=== PATIENT | male | born 1985 | race Caucasian/White ===

== ENCOUNTER 2016-12-21 15:42 | Emergency (ER) | payer OTHER ==
[~2016-12-21] VITALS: Ht 180.3 cm; Wt 68.0 kg
[2016-12-21 17:16] LABS: HEMATOCRIT 43.2 % (39.0-50.0); HEMOGLOBIN 14.7 g/dl (14.0-18.0); IMMATURE GRANULOCYTES 0.1 % (0.0-1.0); MEAN CELL VOLUME 88.3 fL CALC (80.0-100.0); MEAN CORPUSCULAR HGB 30.1 pG CALC (26.0-32.0); NEUT# 3.82 thou/uL (1.82-7.42); RED BLOOD COUNT 4.89 mill/uL (4.70-6.10); RED CELL DISTRI WIDTH 12.6 % (11.5-15.5)
[2016-12-21 17:17] LABS: URINE BILIRUBIN - DIPSTICK NEGATIVE (NEGATIVE); URINE BLOOD DIPSTICK NEGATIVE (NEGATIVE); URINE CLARITY CLEAR; URINE COLOR YELLOW; URINE GLUCOSE - DIPSTICK NEGATIVE (NEGATIVE); URINE KETONE NEGATIVE (NEGATIVE); URINE LEUK ESTERASE NEGATIVE (NEGATIVE); URINE NITRITE - DIPSTICK NEGATIVE (Negative); URINE PH 5.5 (4.5-8.0); URINE PROTEIN - DIPSTICK NEGATIVE (NEG-TRACE); URINE UROBILINOGEN - DIPSTICK 0.2 E.U./dL (0.2)
[2016-12-21 17:29] LABS: ALBUMIN 4.8 g/dL (3.2-5.0); ALKALINE PHOSPHATASE 58 u/l (38-126); AMYLASE 66 u/l (30-110); ANION GAP 16 (6-22 (CALC)); BILIRUBIN, TOTAL 0.4 mg/dL (0.0-1.4); BUN 15 mg/dL (9-20); BUN/CREATININE RATIO 17 (12-20 (CALC)); CARBON DIOXIDE 28 mmol/l (22-30); CHLORIDE 104 mmol/l (95-108); CREATININE 0.9 mg/dL (0.7-1.3); GFR > 60 ML/MIN (>=60 (CALC)); GFR FOR AFR.AMER. > 60 ML/MIN (>=60 (CALC)); GLUCOSE 90 mg/dL (75-110); LIPASE 36 u/l (23-300); SGOT/AST 23 u/l (17-59); SGPT/ALT 38 u/l (21-72); SODIUM 143 mmol/l (137-146)
[2016-12-21 19:42] VITALS: BP 125/81
== END 2016-12-21 19:44 | disposition home or self-care (01) | DRG 392 ==
LOC: ED 15:42
PROVIDERS: Emergency Medicine
DX: R10.31 Right lower quadrant pain (principal); F41.9 Anxiety disorder, unspecified; R10.13 Epigastric pain
CPT/HCPCS: Q9967

== ENCOUNTER 2018-05-17 07:57 | Emergency (ER) | payer SELFPAY ==
[~2018-05-17] VITALS: Ht 180.3 cm; Wt 72.7 kg
[2018-05-17] MEDS ORDERED: CLEOCIN300 MG PO (08:38)
[2018-05-17] MEDS ORDERED: DELTASONE20 MG PO (08:38)
[2018-05-17 09:07] VITALS: BP 139/77
== END 2018-05-17 09:07 | disposition home or self-care (01) | DRG 159 ==
LOC: ED 07:57
DX: K13.79 Other lesions of oral mucosa (principal); M54.2 Cervicalgia

== ENCOUNTER 2018-08-17 20:25 | Emergency (ER) | payer BC ==
[~2018-08-17] VITALS: Ht 180.3 cm; Wt 75.0 kg
[~2018-08-17 20:25] MED LIST: CLEOCIN300 MG PO; DELTASONE20 MG PO
[2018-08-17 21:02] LABS: HEMATOCRIT 40.8 % (39.0-50.0); HEMOGLOBIN 14.2 g/dl (14.0-18.0); IMMATURE GRANULOCYTES 0.2 % (0.0-5.0); MEAN CELL VOLUME 89.3 fL CALC (80.0-100.0); MEAN CORPUSCULAR HGB 31.1 pG CALC (26.0-32.0); MEAN CORPUSCULAR HGB CONC 34.8 g/L CALC (32.0-36.0); NEUT# 4.9 thou/uL (1.82-7.42); RED BLOOD COUNT 4.57 mill/uL (4.70-6.10); RED CELL DISTRI WIDTH 12.5 % (11.5-15.5)
[2018-08-17 21:28] LABS: ALBUMIN 4.7 g/dL (3.2-5.0); ALKALINE PHOSPHATASE 70 u/l (38-126); ANION GAP 15 (6-22 (CALC)); BILIRUBIN, TOTAL 0.4 mg/dL (0.0-1.4); BUN 18 mg/dL (9-20); BUN/CREATININE RATIO 19 (12-20 (CALC)); CARBON DIOXIDE 26 mmol/l (22-30); CHLORIDE 104 mmol/l (95-108); CREATININE 0.9 mg/dL (0.7-1.3); GFR > 60 ML/MIN (>=60 (CALC)); GFR FOR AFR.AMER. > 60 ML/MIN (>=60 (CALC)); SGOT/AST 37 u/l (17-59); SODIUM 141 mmol/l (137-146); TOTAL PROTEIN 7.6 g/dL (6.3-8.2)
[2018-08-17 22:20] LABS: URINE BILIRUBIN - DIPSTICK NEGATIVE (NEGATIVE); URINE BLOOD DIPSTICK NEGATIVE (NEGATIVE); URINE COLOR YELLOW; URINE GLUCOSE - DIPSTICK NEGATIVE (NEGATIVE); URINE KETONE NEGATIVE (NEGATIVE); URINE LEUK ESTERASE NEGATIVE (NEGATIVE); URINE NITRITE - DIPSTICK NEGATIVE (Negative); URINE PH 6.5 (4.5-8.0); URINE PROTEIN - DIPSTICK NEGATIVE (NEG-TRACE); URINE SPECIFIC GRAVITY 1.025; URINE UROBILINOGEN - DIPSTICK 0.2 E.U./dL (0.2)
[2018-08-18 00:07] VITALS: BP 145/72
== END 2018-08-18 00:23 | disposition home or self-care (01) | DRG 730 ==
LOC: ED 20:25
PROVIDERS: Emergency Medicine
DX: N43.3 Hydrocele, unspecified (principal)

== ENCOUNTER 2019-05-06 18:20 | Emergency (ER) | payer BC ==
[~2019-05-06] VITALS: Ht 180.3 cm; Wt 80.0 kg
[2019-05-06 19:47] LABS: HEMATOCRIT 39.2 % (39.0-50.0); HEMOGLOBIN 13.6 g/dl (14.0-18.0); IMMATURE GRANULOCYTES 0.3 % (0.0-5.0); MEAN CELL VOLUME 86.3 fL CALC (80.0-100.0); MEAN CORPUSCULAR HGB CONC 34.7 g/L CALC (32.0-36.0); NEUT# 4.14 thou/uL (1.82-7.42); RED BLOOD COUNT 4.54 mill/uL (4.70-6.10); RED CELL DISTRI WIDTH 12.5 % (11.5-15.5)
[2019-05-06 20:01] LABS: ALBUMIN 4.6 g/dL (3.2-5.0); ALKALINE PHOSPHATASE 76 u/l (38-126); ANION GAP 15 (6-22 (CALC)); BILIRUBIN, TOTAL 0.4 mg/dL (0.0-1.4); BUN 16 mg/dL (9-20); BUN/CREATININE RATIO 18 (12-20 (CALC)); CARBON DIOXIDE 28 mmol/l (22-30); CHLORIDE 102 mmol/l (95-108); CREATININE 0.9 mg/dL (0.7-1.3); GFR > 60 ML/MIN (>=60 (CALC)); GFR FOR AFR.AMER. > 60 ML/MIN (>=60 (CALC)); SGOT/AST 25 u/l (17-59); SODIUM 141 mmol/l (137-146); TOTAL PROTEIN 7.4 g/dL (6.3-8.2)
[2019-05-06 20:14] LABS: MYOGLOBIN 27 ng/mL (0 - 121)
[2019-05-06] MEDS ORDERED: NAPROXEN500 MG PO (21:41)
[2019-05-06 21:48] VITALS: BP 116/70
== END 2019-05-06 21:48 | disposition home or self-care (01) | DRG 313 ==
LOC: ED 18:20
PROVIDERS: Emergency Medicine
DX: R07.89 Other chest pain (principal)

== ENCOUNTER 2019-07-29 12:00 | Emergency (ER) | payer BC ==
[~2019-07-29] VITALS: Ht 180.3 cm; Wt 79.5 kg
[~2019-07-29 12:00] MED LIST changes: +NAPROXEN500 MG PO
[2019-07-29 13:46] LABS: HEMATOCRIT 41.1 % (39.0-50.0); IMMATURE GRANULOCYTES 0.2 % (0.0-5.0); MEAN CELL VOLUME 87.8 fL CALC (80.0-100.0); MEAN CORPUSCULAR HGB 29.9 pG CALC (26.0-32.0); MEAN CORPUSCULAR HGB CONC 34.1 g/L CALC (32.0-36.0); NEUT# 3.04 thou/uL (1.82-7.42); RED BLOOD COUNT 4.68 mill/uL (4.70-6.10); RED CELL DISTRI WIDTH 12.7 % (11.5-15.5)
[2019-07-29 14:03] LABS: ALBUMIN 4.9 g/dL (3.2-5.0); ALKALINE PHOSPHATASE 61 u/l (38-126); AMYLASE 60 u/l (30-110); ANION GAP 15 (6-22 (CALC)); BILIRUBIN, TOTAL 0.6 mg/dL (0.0-1.4); BUN 9 mg/dL (9-20); BUN/CREATININE RATIO 9 (12-20 (CALC)); CARBON DIOXIDE 28 mmol/l (22-30); CHLORIDE 102 mmol/l (95-108); GFR > 60 ML/MIN (>=60 (CALC)); GFR FOR AFR.AMER. > 60 ML/MIN (>=60 (CALC)); LIPASE 33 u/l (23-300); SGOT/AST 30 u/l (17-59); SODIUM 141 mmol/l (137-146); TOTAL PROTEIN 8.2 g/dL (6.3-8.2)
[2019-07-29 14:54] LABS: URINE BILIRUBIN - DIPSTICK NEGATIVE (NEGATIVE); URINE BLOOD DIPSTICK NEGATIVE (NEGATIVE); URINE COLOR YELLOW; URINE GLUCOSE - DIPSTICK NEGATIVE (NEGATIVE); URINE KETONE NEGATIVE (NEGATIVE); URINE LEUK ESTERASE NEGATIVE (NEGATIVE); URINE NITRITE - DIPSTICK NEGATIVE (Negative); URINE PH 6.5 (4.5-8.0); URINE PROTEIN - DIPSTICK NEGATIVE (NEG-TRACE); URINE SPECIFIC GRAVITY <=1.005; URINE UROBILINOGEN - DIPSTICK 0.2 E.U./dL (0.2)
[2019-07-29 15:35] LABS: BARBITURATES NEGATIVE (NEGATIVE); COCAINE NEGATIVE (NEGATIVE); METHADONE NEGATIVE (NEGATIVE); OXCYCODONE NEGATIVE (NEGATIVE); TETRAHYDROCANNABIONOL NEGATIVE (NEGATIVE); TRICYLIC ANTIDEPRESSANTS NEGATIVE (NEGATIVE)
[2019-07-29] MEDS ORDERED: CIPROFLOXACN500 MG PO (16:42)
[2019-07-29] MEDS ORDERED: PROTONIX40 M2 PO (16:42)
[2019-07-29] MEDS ORDERED: METRONIDAZOL500 MG PO (16:42)
[2019-07-29 18:13] VITALS: BP 112/72
== END 2019-07-29 18:13 | disposition home or self-care (01) | DRG 392 ==
LOC: ED 12:00
DX: K57.30 Diverticulosis of large intestine without perforation or abscess without bleeding (principal); K21.9 Gastro-esophageal reflux disease without esophagitis; R22.0 Localized swelling, mass and lump, head; R51 Headache; R42 Dizziness and giddiness; F41.9 Anxiety disorder, unspecified; T50.8X5A Adverse effect of diagnostic agents, initial encounter; T45.0X5A Adverse effect of antiallergic and antiemetic drugs, initial encounter
CPT/HCPCS: J0131; Q9967

== ENCOUNTER 2020-05-30 18:38 | Emergency (ER) | payer BC ==
[~2020-05-30] VITALS: Ht 180.3 cm; Wt 86.0 kg
[~2020-05-30 18:38] MED LIST changes: +CIPROFLOXACN500 MG PO; +METRONIDAZOL500 MG PO; +PROTONIX40 M2 PO
[2020-05-30 20:30] VITALS: BP 116/79
== END 2020-05-30 20:30 | disposition home or self-care (01) | DRG 605 ==
LOC: ED 18:38
DX: S80.01XA Contusion of right knee, initial encounter (principal); W01.0XXA Fall on same level from slipping, tripping and stumbling without subsequent striking against object, initial encounter; Y93.K1 Activity, walking an animal; Y92.410 Unspecified street and highway as the place of occurrence of the external cause

== ENCOUNTER 2020-09-06 16:44 | Emergency (ER) | payer BC ==
[~2020-09-06] VITALS: Ht 180.3 cm; Wt 78.0 kg
[2020-09-06 17:08] LABS: HEMATOCRIT 43.8 % (39.0-50.0); HEMOGLOBIN 14.7 g/dl (14.0-18.0); IMMATURE GRANULOCYTES 0.3 % (0.0-5.0); MEAN CELL VOLUME 89.6 fL CALC (80.0-100.0); MEAN CORPUSCULAR HGB 30.1 pG CALC (26.0-32.0); MEAN CORPUSCULAR HGB CONC 33.6 g/dL CAL (32.0-36.0); NEUT# 4.08 thou/uL (1.82-7.42); RED BLOOD COUNT 4.89 mill/uL (4.70-6.10); RED CELL DISTRI WIDTH 12.5 % (11.5-15.5)
[2020-09-06 17:24] LABS: ALBUMIN 4.7 g/dL (3.2-5.0); ALKALINE PHOSPHATASE 60 u/l (38-126); AMYLASE 84 u/l (30-110); ANION GAP 12 (6-22 (CALC)); BUN 12 mg/dL (9-20); BUN/CREATININE RATIO 12 (12-20 (CALC)); CARBON DIOXIDE 28 mmol/l (22-30); CHLORIDE 102 mmol/l (95-108); GFR > 60 ML/MIN (>=60 (CALC)); GFR FOR AFR.AMER. > 60 ML/MIN (>=60 (CALC)); LIPASE 36 u/l (23-300); POTASSIUM 3.7 mmol/l (3.5-5.1); SGOT/AST 27 u/l (17-59); SODIUM 138 mmol/l (137-146); TOTAL PROTEIN 8.1 g/dL (6.3-8.2)
[2020-09-06 17:27] LABS: BILIRUBIN, TOTAL 0.3 mg/dL (0.0-1.4); D-DIMER 0.17 mg/L (0.19-0.60)
[2020-09-06 18:10] LABS: ACT PARTIAL THROMBO TIME 24.5 SECONDS (20.0-32.5); PROTHROMBIN TIME 9.9 SECONDS (9.0-12.5)
[2020-09-06] MEDS ORDERED: VENTOLIN HFA IN (18:46)
[2020-09-06] MEDS ORDERED: ZPAK PO (18:46)
[2020-09-06] MEDS ORDERED: MEDDOSEPAK PO (18:46)
[2020-09-06] MEDS ORDERED: TESSALON PERLE100 MG PO (18:46)
[2020-09-06 19:05] VITALS: BP 115/80
== END 2020-09-06 19:05 | disposition home or self-care (01) | DRG 203 ==
LOC: ED 16:44
DX: J20.9 Acute bronchitis, unspecified (principal); R07.81 Pleurodynia; Z20.822 Contact with and (suspected) exposure to COVID-19

== ENCOUNTER 2020-11-30 18:03 | Emergency (ER) | payer BC ==
[~2020-11-30 18:03] MED LIST changes: +MEDDOSEPAK PO; +TESSALON PERLE100 MG PO; +VENTOLIN HFA IN; +ZPAK PO
[2020-11-30] MEDS ORDERED: WELLBUTRIN XL150 MG PO (18:22)
[2020-11-30] MEDS ORDERED: CLONAZEPAM1 MG PO (18:22)
[2020-11-30 19:35] LABS: HEMATOCRIT 45.2 % (39.0-50.0); HEMOGLOBIN 15.1 g/dl (14.0-18.0); IMMATURE GRANULOCYTES 0.1 % (0.0-5.0); MEAN CELL VOLUME 91.3 fL CALC (80.0-100.0); MEAN CORPUSCULAR HGB 30.5 pG CALC (26.0-32.0); MEAN CORPUSCULAR HGB CONC 33.4 g/dL CAL (32.0-36.0); NEUT# 3.96 thou/uL (1.82-7.42); RED BLOOD COUNT 4.95 mill/uL (4.70-6.10); RED CELL DISTRI WIDTH 12.8 % (11.5-15.5)
[2020-11-30 19:44] LABS: ALKALINE PHOSPHATASE 70 u/l (38-126); ANION GAP 13 (6-22 (CALC)); BILIRUBIN, TOTAL 0.5 mg/dL (0.0-1.4); BUN 14 mg/dL (9-20); BUN/CREATININE RATIO 13 (12-20 (CALC)); CARBON DIOXIDE 28 mmol/l (22-30); CHLORIDE 102 mmol/l (95-108); CREATININE 1.1 mg/dL (0.7-1.3); GFR > 60 ML/MIN (>=60 (CALC)); GFR FOR AFR.AMER. > 60 ML/MIN (>=60 (CALC)); POTASSIUM 4.1 mmol/l (3.5-5.1); SGOT/AST 34 u/l (17-59); SODIUM 138 mmol/l (137-146); TOTAL PROTEIN 7.8 g/dL (6.3-8.2)
[2020-11-30 20:05] LABS: URINE BILIRUBIN - DIPSTICK NEGATIVE (NEGATIVE); URINE BLOOD DIPSTICK NEGATIVE (NEGATIVE); URINE COLOR YELLOW; URINE GLUCOSE - DIPSTICK NEGATIVE (NEGATIVE); URINE KETONE NEGATIVE (NEGATIVE); URINE LEUK ESTERASE NEGATIVE (NEGATIVE); URINE PH 6.5 (4.5-8.0); URINE PROTEIN - DIPSTICK NEGATIVE (NEG-TRACE); URINE SPECIFIC GRAVITY 1.015; URINE UROBILINOGEN - DIPSTICK 0.2 E.U./dL (0.2)
[2020-11-30 20:06] LABS: URINE NITRITE - DIPSTICK NEGATIVE (Negative)
[2020-11-30 20:43] VITALS: BP 119/86
== END 2020-11-30 20:43 | disposition home or self-care (01) | DRG 696 ==
LOC: ED 18:03
PROVIDERS: Emergency Medicine
DX: R39.198 Other difficulties with micturition (principal); F41.9 Anxiety disorder, unspecified

== ENCOUNTER 2021-04-14 09:00 | Emergency (ER) | payer BC ==
[~2021-04-14] VITALS: Ht 180.3 cm; Wt 79.5 kg
[~2021-04-14 09:00] MED LIST changes: +CLONAZEPAM1 MG PO; +WELLBUTRIN XL150 MG PO
[2021-04-14] MEDS ORDERED: ULTRAM50 M1 PO (09:43)
[2021-04-14 10:07] VITALS: BP 135/87
== END 2021-04-14 10:07 | disposition home or self-care (01) | DRG 563 ==
LOC: ED 09:00
PROC: 2W3EX1Z Immobilization of Right Hand using Splint (ICD-10-PCS; principal; 2021-04-14)
DX: S62.316A Displaced fracture of base of fifth metacarpal bone, right hand, initial encounter for closed fracture (principal); F41.9 Anxiety disorder, unspecified; W22.09XA Striking against other stationary object, initial encounter; Y92.009 Unspecified place in unspecified non-institutional (private) residence as the place of occurrence of the external cause